=== PATIENT | female | born 1940 | race Caucasian/White ===

== ENCOUNTER 2017-01-06 18:07 | Inpatient (IN) | payer MEDICARE, MEDICAID ==
[~2017-01-06] VITALS: Ht 172.7 cm; Wt 130.5 kg
--- NOTE | ~2017-01-06 | CON ---
PATIENT'S NAME: [facility] AGE: 76 Y [address] ROOM: [address] [place] [id number] LOCATION: [facility] ADMIT DATE: 01/06/2017 Consultation DISCHARGE DATE: FAMILY PHYSICIAN: Kayla Holder MD ATTENDING PHYSICIAN: Kayla Holder REFERRING PHYSICIAN: TWILA BERNAL DO CHIEF COMPLAINT: Right knee pain. HISTORY OF PRESENT ILLNESS: This is a 76-year-old female who is brought in by EMS to the emergency room, evaluated, and found to have weakness, right knee pain, and very poor living conditions reported by EMS. The patient is a poor historian, but denies any specific trauma or injury to her right knee recently. She does have history of multiple surgeries, she cannot recall when. Apparently, she had a surgery in [place], she does not know by whom. She had a 2nd surgery performed by Dr. Corral in [place]. She states she has been a home ambulator where she basically transfers from wheelchair to the commode and bed and that is it. MEDICAL HISTORY: Elevated BMI; hypertension; diabetes; hypothyroidism; gastroesophageal reflux; asthma; obstructive sleep apnea; history of urosepsis; chronic bilateral lower extremity edema and swelling; and history DVT and PE, on Coumadin. CURRENT MEDICATIONS: Reviewed. SOCIAL HISTORY: She lives independent in an apartment, transfers from wheelchair to commode or bed. Has reported unsafe living conditions. Currently being treated for UTI and history of urosepsis. PHYSICAL EXAMINATION: VITAL SIGNS: She is 5 feet 8 inches, 133 kilos with an elevated BMI. Temperature 99.7, saturation 90% on 4 L nasal cannula in the ED, subsequently taken off oxygen, able to keep her saturations up. She denies any shortness of breath more than usual. Current blood pressure 121/60, heart rate in the 70s, respiratory rate 16, and current temperature 97.7. EXTREMITIES: She is able to move her lower extremities. Has weakness bilateral. She has chronic bilateral lower extremity edema. Her scar from prior surgeries over her distal femur is crusted over on scar. There is no active drainage or effusion or fluctuance. ABDOMEN: Soft, obese. MUSCULOSKELETAL: Her extensor mechanism is intact. There is no large joint PATIENT'S NAME: [facility] AGE: 76 Y [address] ROOM: [address] [place], [place] [address] LOCATION: [facility] ADMIT DATE: 01/06/2017 Consultation DISCHARGE DATE: FAMILY PHYSICIAN: Kayla Holder MD ATTENDING PHYSICIAN: Kayla Holder. She has chronic pitting edema, bilateral lower extremities. IMAGING DATA: X-rays reviewed show a lateral plate over distal femur with loosening of some of the screws and a broken screw. The plate has come off proximally. The fracture has abundant callus surrounding, however, is not completely united in appearance. Concern for malunion and nonunion. PLAN: Recommend obtaining op note from Dr. Corral in [place]. Keep her toe-touch weightbearing with transfers. Obtain ESR, CRP, and CT scan at the fracture site to evaluate for nonunion at the fracture site. Recommend continue DVT prophylaxis per hospitalist. She is currently on Coumadin. Further recommendations based on inflammatory markers and will obtain op notes from Dr. Corral who did her prior surgery. TWILA BERNAL DO PH/modl /[id number] d: 01/08/17 0001 t: 01/11/17 1818, CONSULTATION REPORT
--- NOTE | ~2017-01-06 | ER ---
PATIENT'S NAME: [facility] AGE: 76 Y [address] ROOM: [place] [address] LOCATION: [facility] ADMIT DATE: 01/06/2017 ER/Outpatient Report DISCHARGE DATE: FAMILY PHYSICIAN: Kayla Holder MD ATTENDING PHYSICIAN: Kayla Holder Time of Patient's Arrival: 1807 hours. Time of Patient's Evaluation: 1807 hours. CHIEF COMPLAINT: Right leg pain and weakness. HISTORY OF PRESENT ILLNESS: This is a 76-year-old female who presents to the ER via [facility]. The patient is a poor historian, but states that she is having some right knee pain. She does live at home in her apartment and she is in her wheelchair most of the time, but she is able to transfer herself to the toilet and transfer herself around to take care of herself, but she has not been able to because she has had some generalized weakness as well. She knows of no new injury to the knee. She does have a history of knee problems in the past and she states that she has seen an orthopedic in [place] as well as in [place] for it. She states that she was told that she should have a knee replacement done in some time. She denies any recent fever or chills. No chest pain. No shortness of breath. She denies any vomiting or diarrhea. No abdominal pain. She does doctor with Dr. Holder and she states that she goes into the clinic frequently to have her blood drawn since she is on Coumadin. ALLERGIES: NO KNOWN ALLERGIES. MEDICATIONS: Please see medication list in nurse's notes. PAST MEDICAL HISTORY: 1. Coronary artery disease. 2. History of PE with DVT. 3. Lvg-jkidsrs-grjjdbpmt diabetic. 4. Asthma. 5. Hypertension. 6. Hypothyroidism. 7. Sleep apnea. 8. History of urosepsis. Most of this was taken for an H and P in 2012. SOCIAL HISTORY: PATIENT'S NAME: [facility] AGE: 76 Y [address] ROOM: [place] [address] LOCATION: N ADMIT DATE: 01/06/2017 ER/Outpatient Report DISCHARGE DATE: FAMILY PHYSICIAN: Kayla Holder MD ATTENDING PHYSICIAN: Glory,Kayla Denies smoking or drug use. Does live at home by herself. REVIEW OF SYSTEMS: All systems were reviewed and were negative with the exception of those discussed in the HPI. PHYSICAL EXAMINATION: VITAL SIGNS: Height 5 feet 8 inches stated, weight 132.6 kg taken, blood pressure is 97/48, pulse 82, respirations 16, temperature 99.7 degrees tympanically, and saturations 90% on 4 L nasal cannula. GENERAL: Alert and obese female, in no acute distress. HEENT: Head: Normocephalic. She does display moist mucous membranes. Eyes: Pupils are equal and reactive to light. NECK: Supple. No lymphadenopathy. LUNGS: Diminished throughout. She has no wheezes or crackles. HEART: Regular rate and rhythm. ABDOMEN: Obese. It is nontender. She has good bowel sounds throughout. EXTREMITIES: She does have venous stasis noted to bilateral lower extremities and does have dry flaking skin noted to bilateral legs from her knees down to her feet. She does have tenderness with palpation across her right knee. I do not appreciate any erythema. She does have 2 to 3+ pitting edema noted to bilateral lower extremities. NEUROLOGIC: Cranial nerves 2 through 12 grossly intact. Gait was not observed. SKIN: She does once again have dry flaking skin noted to her bilateral lower extremities and venous stasis noted to her bilateral lower extremities. LABORATORY DATA: CBC: White count is 10.2, hemoglobin is 12.7, platelets are 199, and ANC is 8.6. INR is 2.77. CMS: Sodium 138, potassium 4.1, BUN 26, creatinine is 0.8, and GFR is greater than 60. Magnesium is 1.8. CPK is 60, CK-MB is 0.6, and troponin I is less than 0.040. EKG shows normal sinus rhythm with some premature supraventricular complexes. Chest x-ray was negative for any infiltrate. X-ray of her right knee and femur was done does show a previous femur repair with hardware and it does look like the hardware screw is broke and some of the bone is not fused correctly. IMPRESSION: 1. Right lower extremity pain. 2. Generalized weakness. 3. History of pulmonary embolism with deep venous thrombosis, is on Coumadin therapy. 4. Xvj-jkwxspj-ggbeplxsx diabetic. 5. History of hypertension. PATIENT'S NAME: DANILO [facility] AGE: 76 Y [address] ROOM: [facility] [place], [place] [address] LOCATION: [facility] ADMIT DATE: 01/06/2017 ER/Outpatient Report DISCHARGE DATE: FAMILY PHYSICIAN: Kayla Holder MD ATTENDING PHYSICIAN: Kayla Holder ASSESSMENT AND PLAN: The patient did rest here comfortably. According to the EMS report, they state that her apartment was unkempt and was foul smelling. I am concerned about the patient going back and not being able to care for herself. I did call Dr. Blanton who is on-call for her primary care physician, Dr. Holder, and he will be placing the patient in the hospital for further observation. The patient understands and agrees with care. XAVIER HUGHES PA-C FOR MD KHOI WOODRUFF/nettie /[id number] d: 01/07/17 0022 t: 02/09/17 1735, OUTPATIENT REPORT
--- NOTE | ~2017-01-06 | HP ---
PATIENT'S NAME: [facility] AGE: 76 Y [address] ROOM: [address] [address] LOCATION: [facility] ADMIT DATE: 01/06/2017 History & Physical DISCHARGE DATE: FAMILY PHYSICIAN: Kayla Holder MD ATTENDING PHYSICIAN: Kayla Holder DATE OF SERVICE: CHIEF COMPLAINT: Right knee pain with weakness. HISTORY OF PRESENT ILLNESS: She presented to the emergency room as a 76-year-old white female, who has a history of morbid obesity, hypertension, type 2 diabetes, hypothyroidism, reflux, history of DVT with PE, allergic rhinitis, chronic anticoagulation, history of distal femur fracture with knee replacement, decreased mobility, and hypoxia. She relates that she called the squad tonight because she had more trouble getting around with right knee pain with swelling. She denies any history of falls. She does have a history of being essentially nonambulatory and typically, just transfers from wheelchair to toilet, wheelchair to chair. She sees Dr. Kayla Holder, but has not seen her in the last couple of months. She relates to me that she has not had any shortness of breath or chest discomfort. MEDICATIONS: Her medications at the time of admission include: 1. Potassium 20 mEq b.i.d. 2. Vitamin D 3000 International Units daily. 3. Metformin 500 mg daily. 4. Lisinopril 2.5 mg per day. 5. Lasix 20 mg per day. 6. Levothyroxine 88 mcg per day. 7. Pantoprazole 40 mg per day. 8. VESIcare 5 mg per day. 9. Multivitamin daily. 10. Zyrtec 10 mg per day. 11. Metoprolol 50 mg daily. 12. Coumadin 4 mg one tab on Sunday, Sunday, Sunday, Sunday; one-half tab Sunday, , Sunday. 13. Colace 100 mg per day. REVIEW OF SYSTEMS: No recent weight loss or weight gain. No fevers or chills. She denies shortness of breath, but does state that she has seen Dr. Stephenson in the past and had some sort of procedure done many years ago. PATIENT'S NAME: [facility] AGE: 76 Y [address] ROOM: [place] [address] LOCATION: [facility] ADMIT DATE: 01/06/2017 History & Physical DISCHARGE DATE: FAMILY PHYSICIAN: Kayla Holder MD ATTENDING PHYSICIAN: Kayla Holder PAST MEDICAL HISTORY: She has a past medical history as stated above. SOCIAL HISTORY: Lives alone at [facility]. She would like to remain independent. She does not smoke. PHYSICAL EXAMINATION: GENERAL: She is awake and alert in no acute distress. She looks older than her stated age. HEENT: Head is normocephalic and atraumatic. Pupils are equal, round, and reactive to light and accommodation. NECK: Supple. LUNGS: Decreased breath sounds in the bases. HEART: Regular rate and rhythm. ABDOMEN: Morbidly obese. She is tender over her medial knee. She has stigmata of previous surgical intervention and has 1+ edema bilaterally. She has stasis changes in bilateral lower extremities as well. LABORATORY STUDIES: Shows an INR of 2.77, white count 10.2, hemoglobin 12.7, hematocrit 37.8, platelets 199,000. Chemistries are normal with the exception of glucose at 104, BUN of 26. Her x-rays of the right femur and right knee show extensive degenerative changes of past trauma and surgery of the distal femur with knee replacement as well. There is a question of more lucency around the uppermost metallic screw with fracture of one of the upper screws, may represent incomplete bony union or loosening of the metallic plate. No acute fracture is seen. UA is positive for nitrites, 25 of blood, many bacteria and white cells. IMPRESSION: 1. Right knee pain and swelling. 2. Morbid obesity. 3. History of deep venous thrombosis and chronically anticoagulated. 4. Type 2 diabetes. 5. Hypertension. 6. Hypothyroidism. 7. Gastroesophageal reflux disease. 8. Incontinence. 9. Urinary tract infection. 10. Weakness. PATIENT'S NAME: [facility] AGE: 76 Y [address] ROOM: [address] [address] LOCATION: [facility] ADMIT DATE: 01/06/2017 History & Physical DISCHARGE DATE: FAMILY PHYSICIAN: Kayla Holder MD ATTENDING PHYSICIAN: Kayla Holder 11. Potentially unsafe living conditions. Apparently, the squad which was called stated it was dismantled and was not very well maintained. We will treat with antibiotics. We will have PT/OT to see. We will have Care Management consult. We will have Orthopedics see the patient regarding the knee and the findings regarding the screw. We will follow lab. We will actively do Accu-Cheks. Dr. Kayla Holder to assume care when available. MD TYLER LOYA/nettie /[id number] D: [id number] T: [id number] HISTORY & PHYSICAL
--- NOTE | ~2017-01-06 | DS ---
PATIENT'S NAME: [facility] AGE: 76 Y [address] ROOM: [address] [place] [address] LOCATION: [facility] ADMIT DATE: 01/08/2017 Discharge Summary DISCHARGE DATE: 02/07/2017 FAMILY PHYSICIAN: Kayla Holder MD ATTENDING PHYSICIAN: Kayla Holder CHIEF COMPLAINT: Right knee pain, weakness, and multi-drug resistant UTI. DISCHARGE DIAGNOSES: 1. Right distal femur fracture malunion. 2. Weakness, improving. 3. Multi-drug resistant urinary tract infection, resolved. SECONDARY DIAGNOSES: 1. Morbid obesity. 2. Hypertension. 3. Nonambulatory, dependent upon use of wheelchair. 4. Type 2 diabetes. 5. Hypothyroidism. 6. Gastroesophageal reflux disease. 7. History of deep venous thrombosis with pulmonary embolism. 8. Allergic rhinitis. 9. Chronic anticoagulation. 10. Chronic hypoxia. HOSPITAL COURSE: She presented to [facility] Emergency Room via ambulance squad due to right leg pain and swelling. When the EMT crew arrived at her home, they reported that she was living in very poor conditions, was completely dependent upon the wheelchair, and was thus not living in a safe situation. Workup in the emergency room revealed extensive degenerative changes from past trauma and past surgeries of the right distal femur with evidence of a right knee replacement as well. There is a question of increased lucency around the uppermost metallic screw with fracture of one of the upper screws with question of incomplete bony union or loosening of the metallic plate. There is no evidence of an acute fracture. Blood work revealed blood sugar of 104 and BUN 26. Hemoglobin 12.7 and white count 10.2. INR 2.77. UA was positive, and culture revealed multi-drug resistant UTI which was sensitive to gentamicin. So, that was started. Orthopedics evaluated the patient, Dr. Hargrove. There was discussion of transferring her to [place] where her past orthopedic surgeon was, Dr. Tran. However, she declined wanting to transfer to another facility. Therefore, evaluation by Dr. Delarosa was recommended and arranged. He evaluated the patient and felt that she had 3 options. One was to continue as is, nonambulatory and dependent upon wheelchair with no further intervention. Secondly was an amputation. Thirdly, multiple staged surgeries with no guarantee of final PATIENT'S NAME: [facility] AGE: 76 Y [address] ROOM: [address] [place], [place] [address] LOCATION: [facility] ADMIT DATE: 01/08/2017 Discharge Summary DISCHARGE DATE: 02/07/2017 FAMILY PHYSICIAN: Kayla Holder MD ATTENDING PHYSICIAN: Kayla Holder. The patient has been nonambulatory and dependent upon wheelchair for a considerable amount of time. I discussed her preferences with her and her power of chief minister, who is her niece. They both felt that it was best for the patient to reside in a [facility], not pursue further surgeries, and continue with nonambulatory status and dependent upon wheelchair. During the course of her hospitalization, her INR did become subtherapeutic for a short time. She was covered with Lovenox. Her initial UTI treated with gentamicin. Recheck UA indicated that there was a new UTI, and this was susceptible to Cipro. So, she was treated with that. The majority of her stay was due to waiting upon approval of secondary insurance and approval from [facility] for acceptance. This was successful on February 07, and the patient was discharged to [facility] under my continued care. DISPOSITION: Discharged to [facility]. MEDICATIONS: 1. Furosemide 20 mg p.o. daily. 2. Levothyroxine 88 mcg p.o. daily. 3. Cipro 250 mg p.o. b.i.d., to stop on February 08. 4. Colace 100 mg p.o. b.i.d. 5. Lisinopril 2.5 mg p.o. daily. 6. Zyrtec 10 mg p.o. daily. 7. Metformin 500 mg p.o. daily. 8. Metoprolol succinate 50 mg p.o. daily. 9. Multivitamin p.o. daily. 10. Nystatin to be applied to gluteal crease twice daily. 11. Protonix 40 mg p.o. daily. 12. Potassium chloride 20 mEq p.o. twice daily. 13. Zoloft 25 mg p.o. q.a.m. 14. Sanctura 20 mg p.o. q.h.s. 15. Warfarin 4 mg p.o. daily. 16. Tylenol 650 mg p.o. q.4 hours p.r.n. pain or fever. 17. MiraLAX 17 g p.o. daily p.r.n. 18. Nasal saline one puff each nostril q.2 hours p.r.n. 19. Vitamin D3 at 3000 international units daily. 20. O2 at 3 L/minute per nasal cannula continuous for hypoxia. FOLLOWUP: She is to follow up with me in clinic with an INR on February 13. PATIENT'S NAME: MAURO [facility] AGE: 76 Y [address] ROOM: [place] [address] LOCATION: [facility] ADMIT DATE: 01/08/2017 Discharge Summary DISCHARGE DATE: 02/07/2017 FAMILY PHYSICIAN: Kayla Holder MD ATTENDING PHYSICIAN: Kayla Holder MD KB/modl /[id number] d: t: 03/08/17 1400, DISCHARGE SUMMARY
--- NOTE | ~2017-01-06 | CON ---
PATIENT'S NAME: [facility] AGE: 76 Y [address] ROOM: [place] [address] LOCATION: [facility] ADMIT DATE: 01/08/2017 Consultation DISCHARGE DATE: FAMILY PHYSICIAN: Kayla Holder MD ATTENDING PHYSICIAN: Kayla Holder DATE OF CONSULTATION: 01/11/2017 REFERRING PHYSICIAN: TWILA BERNAL DO TIME SEEN: 10 p.m. HISTORY OF PRESENT ILLNESS: Ms. Helton is a 76-year-old white female, diabetic, disabled by obesity and chronic respiratory failure. She has a history of multiple operations on her right femur for fracture. Fracture was a minimal trauma fracture, she tripped over her oxygen line while walking, has had multiple operations that have failed, has a chronic nonunion and probably chronic osteomyelitis. Last surgery was done at the [facility], does not want to return to [place] for additional evaluation and treatment. Does not remember the dates. She has been confined to a wheelchair for years. Lives at home with difficulty. Was admitted septic with a urinary tract infection. Now on IV gentamicin. Also, anticoagulated on Coumadin. MEDICATIONS: See list. ALLERGIES: NONE REPORTED. PAST MEDICAL HISTORY: Obesity, respiratory failure, diabetes, and peripheral neuropathy. Does not smoke. Does not drink alcohol. No drug abuse. FAMILY MEDICAL HISTORY: Noncontributory. PERSONAL AND SOCIAL HISTORY: Lives by self with difficulty. PHYSICAL EXAMINATION: GENERAL: A white female, in no acute distress. She is confused and not oriented. NECK: Nontender. BACK: Nontender. PATIENT'S NAME: [facility] AGE: 76 Y [address] ROOM: [place] [address] LOCATION: [facility] ADMIT DATE: 01/08/2017 Consultation DISCHARGE DATE: FAMILY PHYSICIAN: Kayla Holder MD ATTENDING PHYSICIAN: Kayla Holder PELVIS: Stable. HEART: Pulse rate is regular. LUNGS: Able to take in a deep breath. ABDOMEN: Obese. EXTREMITIES: The right thigh is obese. No appreciable deformity of the thigh, grossly stable. Some discomfort on moving the right hip and the right knee. VASCULAR: Dorsalis pedis pulse is palpable in the right foot. Mild edema and mild stasis changes of the right thigh. NEUROLOGIC: Moves right foot with good strength, sensation. Stocking distribution numbness in both lower extremities. INTEGUMENT: Grossly intact. IMAGING DATA: Bone scan, increased uptake to the mid and distal right femur. X-rays of the right femur show nonunion right femur, supracondylar fractures, bone changes consistent with osteomyelitis and deformity of the femur, fixation has loosened and failed. LABORATORY DATA: She was admitted with a C-reactive protein at 10.2. Hemoglobin 12.5, white blood count 5.8, and sedimentation rate 89. ASSESSMENT AND PLAN: The patient is currently being treated with IV antibiotics for sepsis after urinary tract infection. Any treatment of the right femur would be delayed until the urinary tract infection is treated and has been off antibiotics. The right femur is likely to have osteomyelitis. The best chance of identifying the organism will be being off the antibiotics for a period of time after the urinary tract infection has been successfully treated. I had a long talk with the patient, has had multiple failed operations in an attempt to heal the right femur, has multiple comorbidities which puts her at high risk for additional complications. She understands one treatment would be an above knee amputation. Certainly an above knee amputation would be the quickest healing, but it is unlikely that she would ever ambulate with a prosthesis. Surgical treatment in attempt to resolve the osteomyelitis, correct the deformity, and heal the fracture would include multiple staged operations, these would be elective. We would do debridement of the probable osteomyelitis with extensive cultures, correction of deformities, packed antibiotic-impregnated beads, place an external fixator, and then a period of IV antibiotics based on the results of cultures. After completion of approximately 2 months of IV antibiotics and if the cultures have returned to normal and if Ms. Helton continues to desire to have additional treatment, would plan for removal of the external fixator and staged bone grafting and internal fixation. Likely develop some arthritis of the right knee that might require PATIENT'S NAME: MAURO HELTON [facility] AGE: 76 Y [address] ROOM: [address] [place], [place] [address] LOCATION: [facility] ADMIT DATE: 01/08/2017 Consultation DISCHARGE DATE: FAMILY PHYSICIAN: Kayla Holder MD ATTENDING PHYSICIAN: Kayla Holder additional treatment in the future as well. Risks, benefits, and alternatives have all been discussed in detail. These are chronic conditions and will be treated electively. We will see her in the office on January 22 at 2 p.m. to confirm that completed the IV treatment of the urinary tract infection and has been off the antibiotics and the urine has normalized. We will also again discuss all treatment options. If the patient decides to return to the [facility], they are already established as her providers. CARLA MCCORMICK MD DPM/nettie /[id number] d: 01/12/172 t: 01/24/17 1004, CONSULTATION REPORT
[2017-01-06 18:40] LABS: BASOPHIL % 0.2 %; EOSINOPHIL # 0.1 K/uL (0.0-0.5); EOSINOPHIL % 0.6 %; HEMATOCRIT 37.8 % (33.0-46.0); HEMOGLOBIN 12.7 g/dL (10.0-15.0); IMMATURE GRANULOCYTE % 0.4 %; LYMPHOCYTE # 0.6 K/uL (0.8-4.0); LYMPHOCYTE % 5.6 %; MCH 31.8 pg (27.0-34.0); MCHC 33.6 gm/dL (32.0-36.5); MCV 94.5 fl (83.0-98.0); MONOCYTE % 9.3 %; MPV 10.2 fl (9.4-12.4); NEUTROPHIL # (ANC) 8.6 K/uL (1.8-7.8); NEUTROPHIL % 83.9 %; NRBC % 0 /100WBC (0-0.00); PLATELET COUNT 199 K/uL (150-450); RDW-CV 13.1 % (11.9-14.6); WBC 10.2 K/uL (4.0-11.0)
[2017-01-06 18:52] LABS: INR - (THERAPEUTIC) 2.77 (0.92-1.07); PROTIME 29.4 SECONDS (9.8-11.4); PTT 54 SECONDS (25-32)
[2017-01-06 19:00] LABS: ALBUMIN 2.9 gm/dL (3.5-5.0); ALK PHOS 87 IU/L (33-138); ALT 15 IU/L (12-78); ANION GAP 9.1 (10.0-19.0); AST 14 IU/L (10-40); BLOOD UREA NITROGEN 26 mg/dL (6-24); CHLORIDE 100 mMol/L (96-110); CO2 33 mMol/L (22-32); CPK 60 IU/L (21-215); CREATININE 0.8 mg/dL (0.5-1.1); ESTIMATED GFR (MDRD EQUATION) > 60; MAGNESIUM 1.8 mg/dL (1.8-2.6); POTASSIUM 4.1 mMol/L (3.7-5.1); SODIUM 138 mMol/L (135-145); TOTAL BILIRUBIN 0.5 mg/dL (0.0-1.5); TOTAL PROTEIN 7.1 g/dL (6.0-8.4)
[2017-01-06 20:37] LABS: BLOOD URINE 25 /UL (NEGATIVE); COLOR URINE YELLOW (YELLOW); GLUCOSE URINE NEGATIVE (NEGATIVE); KETONE URINE NEGATIVE (NEGATIVE); LEUKOCYTES URINE 25 /UL (NEGATIVE); NITRITE URINE POSITIVE (NEGATIVE); PROTEIN URINE 15 mg/dL (NEGATIVE); TURBIDITY URINE CLEAR (CLEAR); UROBILINOGEN URINE 1 mg/dL (NORMAL)
[2017-01-06 20:58] LABS: BACTERIA URINE MANY (NEGATIVE)
[2017-01-06 21:01] LABS: EPITHELIAL URINE 0-2 #/HPF (NEGATIVE); WBC CLUMPS URINE FEW (NEGATIVE)
[2017-01-07] MEDS ORDERED: K-TAB 10MEQ10 MEQ PO (01:19)
[2017-01-07] MEDS ORDERED: VITAMIN D31000 UNI1 PO (01:23)
[2017-01-07] MEDS ORDERED: LASIX20 MG PO (01:25)
[2017-01-07] MEDS ORDERED: PRINIVIL (ZESTRI5 MG PO (01:26)
[2017-01-07] MEDS ORDERED: GLUCOPHAGE500 MG PO (01:29)
[2017-01-07] MEDS ORDERED: CERTAVITE SR-A1 EACH PO (01:31)
[2017-01-07] MEDS ORDERED: VESICARE5 MG PO (01:33)
[2017-01-07] MEDS ORDERED: PROTONIX40 MG PO (01:36)
[2017-01-07] MEDS ORDERED: SYNTHROID88 MCG PO (01:39)
[2017-01-07] MEDS ORDERED: ZYRTEC10 MG PO (01:41)
[2017-01-07] MEDS ORDERED: METOPROLOL SUCC50 MG PO (01:43)
[2017-01-07] MEDS ORDERED: COUMADIN 4MG **4 MG PO ×2 (01:48→01:50)
--- NOTE | 2017-01-07 02:27 | NUR ---
Patient arrived to ER via ambulance from home in [place] due to increased weaknesss and right knee pain and inability to care for self. Patient has very poor skin condition and hygiene, VSS are stable, is currenltly on 5L of 02 wears 4L at home. Very poor historian with medical history and evidence of cognitive impairment. Med recon completed by using patients medication bottles she brought from home.
[2017-01-07] MEDS ORDERED: OXYGEN M-15 INH (02:32)
[2017-01-07 04:31] LABS: BASOPHIL % 0.3 %; EOSINOPHIL # 0.2 K/uL (0.0-0.5); EOSINOPHIL % 2.1 %; HEMATOCRIT 36.7 % (33.0-46.0); HEMOGLOBIN 12.1 g/dL (10.0-15.0); IMMATURE GRANULOCYTE % 0.4 %; LYMPHOCYTE # 0.8 K/uL (0.8-4.0); LYMPHOCYTE % 10.2 %; MCH 31.8 pg (27.0-34.0); MCV 96.3 fl (83.0-98.0); MONOCYTE # 0.8 K/uL (0.0-1.0); MPV 9.8 fl (9.4-12.4); NEUTROPHIL # (ANC) 5.8 K/uL (1.8-7.8); NRBC % 0 /100WBC (0-0.00); PLATELET COUNT 172 K/uL (150-450); RBC 3.81 M/uL (3.50-5.50); RDW-CV 13.2 % (11.9-14.6); WBC 7.6 K/uL (4.0-11.0)
--- NOTE | 2017-01-07 04:50 | NUR ---
Patient is alert and oriented, seem to have some slight cognitive impairment, has a UTI on antibiotics IV, very hard to reposition in bed unable to move self, has numerous skin issues to bilateral abdominal folds, groins, buttocks, bilateral legs and abdomen, skin on legs is very dry and peeling/flaking off, patient needs mechanical lift for transfers and repositioning, patient living conditions at home were not good and she is unable to provide adequate care for herself and is needs to find placement to have care management consult and WOC
[2017-01-07 05:05] LABS: ALBUMIN 2.5 gm/dL (3.5-5.0); ALK PHOS 73 IU/L (33-138); ALT 14 IU/L (12-78); ANION GAP 7.3 (10.0-19.0); AST 13 IU/L (10-40); BLOOD UREA NITROGEN 24 mg/dL (6-24); CALCIUM 8.7 mg/dL (8.5-10.5); CHLORIDE 103 mMol/L (96-110); CREATININE 0.6 mg/dL (0.5-1.1); ESTIMATED GFR (MDRD EQUATION) > 60; POTASSIUM 4.3 mMol/L (3.7-5.1); SODIUM 141 mMol/L (135-145); TOTAL BILIRUBIN 0.4 mg/dL (0.0-1.5); TOTAL PROTEIN 6.1 g/dL (6.0-8.4)
[2017-01-07 05:09] LABS: CO2 35 mMol/L (22-32)
--- NOTE | 2017-01-07 17:59 | NUR ---
Significant Event: UP TO COMMODE AND CHAIR USING SIT TO STSAND LIFT, TOLERATED ACTIVITY WELL. HAS BEEN CONTINENT OF URINE. ABLE TO MAKE NEEDS KNOWN. IS [employer] [place] IS ABLE TO UNDERSTAND CONVERSATION BETTER IF PERSON FACES HER TO SPEAK...TOWEL PLACED UNDER SKIN FOLDS OF ABD. A[place]ISTA APPLIED TO LOWER LEGS. HAS ABRASION LIKE AREA ON RIGHT MID BUTTOCK, ALEO APPLIED. HAD TYLENOL THIS AM.. [facility] NURSES TO SEE HER SUNDAY, NEED TO LOOK AT HER FEET... Follow up:
--- NOTE | 2017-01-08 03:46 | NUR ---
Significant Event:pt alert and orientedx4.pleasant with cares and staff. can be tearful at times. incontient of urien at night. buttocks purple however blanchable. does have small open area appears to be scratch. naila care and barrier applied. abdomen fold and naila area also noted to be red, areas cleaned and barrier applied. pt takes medicaiton whole. denies pain to right knee when not moving hwoever does have pain with movement. pt stats she lives at home and takes care of herself. pt iv to right forearm. lower extremites very swollen. barrier applied to legs due to beign so dry. noted to have very large bm at hs. uses call light approp. Follow up:
--- NOTE | 2017-01-08 08:49 | NUR ---
PT SCREENED D/T (+) MST. PT W/ GOOD APPETITE, EATING 100% AND BMI IN MORBIDLY OBESE RANGE. BASED ON CURRENT DATA, PT NOT AT RISK. WILL ASSIST NEEDED.
--- NOTE | 2017-01-08 15:35 | NUR ---
SPOKE TO PATIENT REGARDING CM AND OUR ROLE. PATIENT LIVES ALONE IN AN APARTMENT. THERE IS CONCERN TO WHETHER OR NOT PATIENT CAN RETURN HOME AND CARE FOR HERSELF. I MEET WITH PATIENT AT LENGTH. SHE TELLS ME SHE GETS AROUND PER WC. AND I EXPLAINED TO HER ABOUT THE CONCERNS OF HER RETURNING HOME ALONE. AND PRESENTED THE OPTION OF HER GOING TO A SNF. SHE TELLS ME THAT SHE IS OPENED TO GOING TO [facility] SHE LIVES NEAR THERE. AT THIS TIME PATIENT IS OBSERVATION STATUS SO IT WOULD BE OUT OF POCKET. REFERRAL MADE TO GERARDO WITH [facility]. GERARDO VOICES CONCERNS ABOUT PATIENT BEING OBSERVATION AND PRIVATE PAY. SHE WOULD LIKE FOR ME TO FAX INFO TO HER SHE WILL REVIEW IT THEY WILL GET BACK TO ME ON SUN.
--- NOTE | 2017-01-08 16:16 | NUR ---
Significant Event: Pt Aox3. VSS, CSM WNL, unable to check pedal pulse but toes pink, warm, wiggle. Splint to R) LE C/D/I, iced and elevated. Pain with movement. Up to recliner with mechanical lift, does well. IV intact. Urine very strong smelling. Keflex started today and Florastor. Pain controlled with PRN [place], given x 1. Needs much encouragement with activity and therapies. Uses IS as instructed with encouragement. Takes PO well. Follow up:
--- NOTE | 2017-01-08 16:54 | NUR ---
patient up to recliner with sit to stand. using BSC with sit to stand, tolerated well. unable to stand or maintain wb status with physical therapy. skin very dry-aloe applied, small open area to buttock-applied aloe vesta frequently. abdominal folds reddened, aloe applied and towel to keep skin seperated. edema to right knee. refused tylenol. right knee uncomfortable but refuses pain meds. o2 at 4l/min as at home. vss. left lung diminished. +e coli in urine, started on gentamycin.pleasant and cooperative.
--- NOTE | 2017-01-09 04:22 | NUR ---
Pt EGEGIK. Pt on 4L per NC chronically. Aloe vesta applied to bottom. PRN at 0418. incontinent at times. Lgd-ej-rmymb used for transfers. Pt on IV Gent.
[2017-01-09 05:15] LABS: BASOPHIL % 0.2 %; EOSINOPHIL # 0.4 K/uL (0.0-0.5); HEMATOCRIT 39.2 % (33.0-46.0); HEMOGLOBIN 12.5 g/dL (10.0-15.0); IMMATURE GRANULOCYTE % 0.3 %; LYMPHOCYTE # 0.7 K/uL (0.8-4.0); LYMPHOCYTE % 11.2 %; MCH 31.3 pg (27.0-34.0); MCHC 31.9 gm/dL (32.0-36.5); MCV 98.2 fl (83.0-98.0); MONOCYTE # 0.6 K/uL (0.0-1.0); MONOCYTE % 10.8 %; MPV 9.6 fl (9.4-12.4); NEUTROPHIL # (ANC) 4.1 K/uL (1.8-7.8); NEUTROPHIL % 70.5 %; NRBC % 0 /100WBC (0-0.00); PLATELET COUNT 199 K/uL (150-450); RBC 3.99 M/uL (3.50-5.50); RDW-CV 12.8 % (11.9-14.6); WBC 5.8 K/uL (4.0-11.0)
--- NOTE | 2017-01-09 17:16 | NUR ---
Significant Event: Transfers with xgq-ju-xlxqt lift and two assist. TTWB to R) leg , does not maintain even in lift. Voids without difficulty. Small loose BM. Remains on 4L O2. Refuses offers of Tylenol. Accucheck ACHS. Follow up:
--- NOTE | 2017-01-10 04:50 | NUR ---
Significant Event: Alert and oriented X3. Vital signs stable. Sats at 90-95% on 3L 02. Continent of urine this shift. On IV gent for UTI with E.Coli. Redness/excoration to abdominal and groin folds. Excessive dryness to lower legs. Buttocks purple in color with some excoration. Aloe vesta applied. IV to R) FA. Pt is TTWB, unable to follow using sit-stand lift. Tylenol given at HS. Refuses other offers of pain. States she is not having pain when not moving. Repositioned q 2 hr. Pleasant and cooperative with cares. Follow up:
[2017-01-10 05:39] LABS: BASOPHIL % 0.3 %; EOSINOPHIL # 0.4 K/uL (0.0-0.5); EOSINOPHIL % 7.3 %; HEMOGLOBIN 12.3 g/dL (10.0-15.0); IMMATURE GRANULOCYTE % 0.5 %; LYMPHOCYTE # 0.6 K/uL (0.8-4.0); LYMPHOCYTE % 9.9 %; MCHC 31.5 gm/dL (32.0-36.5); MCV 98.2 fl (83.0-98.0); MONOCYTE # 0.6 K/uL (0.0-1.0); MONOCYTE % 10.6 %; MPV 9.3 fl (9.4-12.4); NEUTROPHIL # (ANC) 4.3 K/uL (1.8-7.8); NEUTROPHIL % 71.4 %; NRBC % 0 /100WBC (0-0.00); PLATELET COUNT 204 K/uL (150-450); RBC 3.97 M/uL (3.50-5.50); RDW-CV 12.8 % (11.9-14.6); WBC 6.1 K/uL (4.0-11.0)
[2017-01-10 05:52] LABS: INR - (THERAPEUTIC) 2.06 (0.92-1.07); PROTIME 21.8 SECONDS (9.8-11.4)
--- NOTE | 2017-01-10 11:30 | NUR ---
RECEIVED CALL FROM GERARDO WITH [facility] SHE INFORMS ME THAT THEY ARE NOT APPOSED TO TAKING MAURO BUT THE FACT SHE DOES NOT HAVE A SECOND PAYOR SOURCE CONCERNS THEM AND SUGGESTS THAT WE WORK ON GETTING HER ON MEDICAID. I EXPLIANED TO HER THAT EARLIER THIS MORNING I MADE A REFERRAL TO [facility] WITH [employer] AND SHE WAS GOING TO LOOK AND SEE IF PATIENT WOULD QUALIFY FOR MEDICAID. GERARDO WOULD LIKE FOR ME TO KEEP HER UPDATED ON THE PATIENT. WILL CONT TO FOLLOW NEEDED.
[2017-01-10 12:37] LABS: CREATININE 0.6 mg/dL (0.5-1.1); ESTIMATED GFR (MDRD EQUATION) > 60
--- NOTE | 2017-01-10 17:19 | NUR ---
Significant Event: Transfers with two assist and ugk-us-hkcrj lift. Voids frequently, incont at times. Denies pain, refuses offers of Tylenol. Isolation for E-Coli in urine. Follow up:
--- NOTE | 2017-01-11 04:22 | NUR ---
Patient is alert and oriented, slow to respond to questions at times and is hard of hearing, transfers 2 assist with sit to stand lift does fair, no c/o pain or discomfort, in isolation for ecoli in urine, has IV antibiotics, has rested well tonight
[2017-01-11 04:57] LABS: BASOPHIL % 0.3 %; EOSINOPHIL # 0.5 K/uL (0.0-0.5); EOSINOPHIL % 6.1 %; HEMATOCRIT 38.9 % (33.0-46.0); HEMOGLOBIN 12.2 g/dL (10.0-15.0); IMMATURE GRANULOCYTE % 0.5 %; LYMPHOCYTE # 0.9 K/uL (0.8-4.0); LYMPHOCYTE % 11.7 %; MCHC 31.4 gm/dL (32.0-36.5); MCV 98.7 fl (83.0-98.0); MONOCYTE # 0.8 K/uL (0.0-1.0); MONOCYTE % 10.5 %; MPV 9.5 fl (9.4-12.4); NEUTROPHIL # (ANC) 5.4 K/uL (1.8-7.8); NEUTROPHIL % 70.9 %; NRBC % 0 /100WBC (0-0.00); PLATELET COUNT 191 K/uL (150-450); RBC 3.94 M/uL (3.50-5.50); RDW-CV 12.7 % (11.9-14.6); WBC 7.7 K/uL (4.0-11.0)
--- NOTE | 2017-01-11 17:52 | NUR ---
Pt alert, oriented. She had pain rated at 2 earlier today and none since except states sligh Rt knee pain when transferred. Tylenol po x1 last at 0800. She has been up recliner most of shift. Up to BSC x2 and got in bed at 1700 and tilted to left side. Has had aloe to naila area when has excoriation and tiny open areas. Has slight redness to abd folds and groin and no open areas noted. Pt has voided well, but dribbles as soon as stands. Has edema and dry skin lower legs. States CSM WNL. O2 reduced to 3 liters and sats 91%. In contact isolation for E choli in urine. Acuchecks and no sliding scale. Pt is hard of hearing.
--- NOTE | 2017-01-12 04:34 | NUR ---
Patient is alert and oriented x3, very pleasant and cooperative, no c/o pain or discomfort this shift, has rested well, uses sit to stand lift for transfers and does well, skin is looking much better, seen by Dr. Isaura moon, patient was in good spirits
[2017-01-12 05:27] LABS: BASOPHIL % 0.3 %; EOSINOPHIL # 0.5 K/uL (0.0-0.5); EOSINOPHIL % 7.6 %; HEMATOCRIT 38.5 % (33.0-46.0); IMMATURE GRANULOCYTE % 0.6 %; LYMPHOCYTE # 0.7 K/uL (0.8-4.0); LYMPHOCYTE % 10.6 %; MCH 30.4 pg (27.0-34.0); MCHC 31.2 gm/dL (32.0-36.5); MCV 97.5 fl (83.0-98.0); MONOCYTE # 0.6 K/uL (0.0-1.0); MONOCYTE % 9.3 %; MPV 9.4 fl (9.4-12.4); NEUTROPHIL # (ANC) 4.5 K/uL (1.8-7.8); NEUTROPHIL % 71.6 %; NRBC % 0 /100WBC (0-0.00); PLATELET COUNT 215 K/uL (150-450); RBC 3.95 M/uL (3.50-5.50); RDW-CV 12.8 % (11.9-14.6); WBC 6.3 K/uL (4.0-11.0)
[2017-01-12 05:35] LABS: INR - (THERAPEUTIC) 1.71 (0.92-1.07); PROTIME 18.1 SECONDS (9.8-11.4)
[2017-01-12 06:06] LABS: BLOOD UREA NITROGEN 26 mg/dL (6-24); CALCIUM 8.7 mg/dL (8.5-10.5); CHLORIDE 99 mMol/L (96-110); CREATININE 0.7 mg/dL (0.5-1.1); ESTIMATED GFR (MDRD EQUATION) > 60; POTASSIUM 4.6 mMol/L (3.7-5.1); SODIUM 140 mMol/L (135-145)
[2017-01-12 06:07] LABS: ANION GAP 5.6 (10.0-19.0); CO2 40 mMol/L (22-32)
--- NOTE | 2017-01-12 10:34 | NUR ---
NOTIFIED GERARDO WITH [facility] AND GAVE HER UPDATE ON PATIENT. GERARDO WILL TAKE THE INFO TO HER TEAM AND GET BACK TO ME. SHE ANTICIPATES IT WILL BE THE FIRST OF NEXT WEEK BEFORE THEY CAN ACCEPT PATIENT. WILL CONT TO FOLLOW NEEDED.
--- NOTE | 2017-01-12 17:22 | NUR ---
Pt alert and oriented. She had IV restart left FA for infiltration. She has some numbness/tingling feet and slight numbness Rt knee. Pt given Gentamycin IV this morning. Pt voids on BSC and has been up to it 4 times this shift. Has been in recliner most of shift. Pt has peeling skin Rt buttock along with dry, purplish skin and aloe vesta on with each void. Aloe also to abd folds and naila area for slight redness and no open areas. Pt has denied pain Rt knee. Care Mgmt checking into placement. Pt has edema Rt knee. BS 100 and 210 so far this shfit. Pt continues in isolation for Ecoli in urine.
--- NOTE | 2017-01-13 04:34 | NUR ---
Shift Summary: Patient slept soundly throughout the night. She did not require any PRN pain medication. Transfers using Ier-pm-Iitwy lift with 2 assist. Is in isolation for EColi in urine. On 3L O2 per NC at all times. On AC&HS AC's but not SS. BS at HS was 166.
--- NOTE | 2017-01-13 08:43 | NUR ---
PT SCREENED D/T LOS. EST NEEDS: 7614-3277 KCALS, 75 GM PROTEIN, 1 ML/KCAL FLUIDS. INTAKE 100%. NO NUTRITION-RELATED DIAGNOSIS IDENTIFIED. WILL ASSIST NEEDED.
--- NOTE | 2017-01-13 17:18 | NUR ---
Pt alert, oriented. She has been up in recliner, up to BSC several times with lift and back to recliner. Hasn't had pain except when PT helped her up and was in Rt knee. Pt continues in contact isolation for Ecoli in urine. On Gentamycin IV. Pt CSM WNL except neuropathy bilat feet. MS 121 and 226 so far. Eats and drinks well. 900 ml voided. [place] abd folds and groin, Aloe [facility] to areas. Bottom is reddish purple, peeling skin Rt buttock. C/o buttocks itching. Aloe on. Note on chart for Dr to see if something else should be ordered. Pt on iris cushion. VS stable. CM working on placement when ready to transfer
--- NOTE | 2017-01-14 03:30 | NUR ---
Shift Summary: Patient is a zpm-gd-bseze lift to transfer. Has not requested any pain medication this shift. Tolerating ADA diet well. Voids without difficulty. Has dribbling at times when on the way to [facility]. On accuchecks AC&HS but no SS. BS at HS was 151. Patient in contact isolation for EColi in urine. Patient waiting for placement.
--- NOTE | 2017-01-14 17:25 | NUR ---
Pt alert and oriented. Denies pain. DId have tylenol at 1700 for occasional pain she gets Rt knee when transferred. Nystatin ointment used now on buttocks as ordered. Use the aloe on abd folds only. Pt has voided on BSC x3, Pt in recliner on iris cushion most of shift. Pt BS 120, 124, 116. Had discussed different menu choices today to see if BS would be lower at noon. Pt cooperated and seems now more aware of better foods to order. Pt has peripheral neuropathy bilat feet. Saline lock LF and gentamycin given this SM. Pt bottom purplish red, peeling skin and pettechiae redness perimeter. Says itching slightly better of buttocks. CM to continue tomorrow regarding placement. Pt in good spirits today. Does puzzles and plays cards and converses with staff. Scant mucous stool, small. Continues on contact isolation for Ecoli in urine
--- NOTE | 2017-01-15 04:10 | NUR ---
Shift Summary: Patient is a oxg-zr-tqahz lift. She has not taken any pain medication this shift. Is on Accuchecks AC&HS, but not SS. BS at HS was 137. She tolerates an ADA diet well. Voids without difficulty. Does have dribbling when up with lift at times. Has purplish skin color to buttocks with peeling skin. Slightly red skin to abd skin fold/groin. Patient in isolation for EColi in urine. She is [place], no hearing aids. Waiting for placement.
--- NOTE | 2017-01-15 09:50 | NUR ---
SPOKE TO DR. STYLES SHE FEELS THAT PATIENT IS READY FOR DISCHARGE TO [facility]. I SPOKE TO SHANNON AT [facility] AND SHE INFORMS ME THAT SHE HAS MEET WITH THE TEAM AND THAT THEY WILL NOT ACCEPT PATIENT UNTIL SHE HAS A SECOND PAYOR SOURCE AND THEY HAVE CONCERNS ABOUT THE ISOLATION. I SPOKE TO INDER WITH [employer] AND SHE REPORTS THAT THEY WILL START THE REFERRAL FOR MEDICAID TODAY. I HAVE UPDATED PATIENT AND DR. STYLES.
[2017-01-15 11:20] LABS: CREATININE 0.7 mg/dL (0.5-1.1); ESTIMATED GFR (MDRD EQUATION) > 60
--- NOTE | 2017-01-15 19:09 | NUR ---
Significant Event: UP IN RECLINER, UP TO COMMODE PER SIT TO STAND LIFT. TOLERATES USING SIT TO STAND WELL. DOES HAVE SOME RIGHT KNEE PAIN WITH TRANSFERS. BUTTOCKS PURPLISH IN COLORWITH SOME PEELING SKIN. SKIN RED TO ABD/GROIN FOLDS. ACCU CHECKS WITHIN NORMALS. IN ISOLATION FOR E-COLLI IN URINE. IS [facility], WAITING FOR DC PLAACEMENT... Follow up:
--- NOTE | 2017-01-16 04:28 | NUR ---
Significant Event: Alert/oriented x3. Wzt-qc-onszw lift in room. 1 void using bedside commode and 1 large incontinence of urine. Isolation for E coli in urine. Accuchecks AC, HS, but no sliding scale, 125 at HS. Purplish skin to buttocks, dry flaky skin throughout. Scheduled ointment in room. [place], no hearing aids. Slightly red skin to abdominal skin folds and groins. No pain medications given. Red scab on right knee, open to air. VSS on 3 LPM O2 per nasal cannula. CSM WNL. Follow up:
[2017-01-16 06:08] LABS: BASOPHIL % 0.4 %; EOSINOPHIL # 0.4 K/uL (0.0-0.5); EOSINOPHIL % 8.2 %; HEMATOCRIT 39.1 % (33.0-46.0); HEMOGLOBIN 12.4 g/dL (10.0-15.0); IMMATURE GRANULOCYTE % 0.7 %; LYMPHOCYTE # 0.7 K/uL (0.8-4.0); MCH 30.5 pg (27.0-34.0); MCHC 31.7 gm/dL (32.0-36.5); MCV 96.1 fl (83.0-98.0); MONOCYTE # 0.5 K/uL (0.0-1.0); MONOCYTE % 9.3 %; MPV 9.6 fl (9.4-12.4); NEUTROPHIL # (ANC) 3.7 K/uL (1.8-7.8); NEUTROPHIL % 68.4 %; NRBC % 0 /100WBC (0-0.00); PLATELET COUNT 187 K/uL (150-450); RBC 4.07 M/uL (3.50-5.50); RDW-CV 12.7 % (11.9-14.6); WBC 5.4 K/uL (4.0-11.0)
[2017-01-16 06:18] LABS: INR - (THERAPEUTIC) 1.4 (0.92-1.07); PROTIME 14.7 SECONDS (9.8-11.4)
[2017-01-16 06:26] LABS: BLOOD UREA NITROGEN 30 mg/dL (6-24); CALCIUM 8.7 mg/dL (8.5-10.5); CHLORIDE 98 mMol/L (96-110); CREATININE 0.7 mg/dL (0.5-1.1); ESTIMATED GFR (MDRD EQUATION) > 60; POTASSIUM 4.1 mMol/L (3.7-5.1); SODIUM 140 mMol/L (135-145)
[2017-01-16 06:27] LABS: ANION GAP 8.1 (10.0-19.0); CO2 38 mMol/L (22-32)
--- NOTE | 2017-01-16 17:57 | NUR ---
PATIENT UP TO CHAIR TODAY FOR MOST OF DAY. USING SIT TO STAND LIFT TO CHAIR, BSC. TOLERATED WELL. AWAITING NH PLACEMENT. VSS. TTWB RIGHT LEG. REDNESS TO GROIN-ALOE APPLIED. BUTTOCK PURPLISH WITH DRY CRUSTY SKIN-NYSTATIN APPLIED. RIGHT KNEE PAIN, HAD TYLENOL EARLY IN SHIFT. O2 AT 3L/MIN. IN CONTACT ISOLATION. VOIDING QS.
--- NOTE | 2017-01-17 03:52 | NUR ---
Significant Event: Alert/oriented x3. Isolation for E coli of urine. Ufu-tr-xuheu for transfers. Skin issues throughout - dry, flaky. Purplish skin on buttocks, Nystatin ointment in bathroom. Skin folds to abdomen and groin slightly red. VSS. Refused pain meds. O2 3 LPM per nasal cannula. 2 voids per bedpan. Prefers to turn to her right. Small red scab to right knee. Follow up:
--- NOTE | 2017-01-17 15:00 | NUR ---
SPOKE TO INDER WITH [employer] TO SEE PATIENT IS ANY WHERE NEAR GETTING MEDICAID. SHE INFORMS ME THAT THEY SUBMITTED THE PAPER WORK YESTERDAY. SHE WILL CONTACT ME WITH ANY UPDATES.
--- NOTE | 2017-01-17 19:01 | NUR ---
Significant Event: Transfers with two assist and qrj-fg-ionot lift. Voids per bedside commode. Denies pain. Remains in isolation for drug resistance E-Coli. Follow up:
--- NOTE | 2017-01-18 05:23 | NUR ---
Shift Summary: Patient is a wba-qr-aycjs to transfer. Tolerating ADA diet well. Voids without difficulty. Does dribble at times. Gave Tylenol at bedtime. Is diabetic, but not on accuchecks. Patient in isolation for E.Coli in urine. She is waiting for placement.
[2017-01-18 05:55] LABS: INR - (THERAPEUTIC) 1.77 (0.92-1.07); PROTIME 18.7 SECONDS (9.8-11.4)
--- NOTE | 2017-01-18 20:45 | NUR ---
Significant Event: UP TO RECLINER, COMMODE USING SIT TO STAND, TOLERATES ACTIVITY WELL, PASSING GAS, VOIDING WELL. BUTTOCKS RED/DARK PURPLE WITH SOME SKIN ABRASION. ALEO APPLIED. TAKES MEDS WELL HAD TYLENOL THIS AM...WAITING FOR PLACEMENT... Follow up:
--- NOTE | 2017-01-19 03:37 | NUR ---
Shift Summary: Patient uses a rvb-ep-euawp lift for transfers. Tolerating ADA diet well. Voiding without difficulty. Overdue for a BM. In isolation for E.Coli in urine. Waiting for placement. Patient took tylenol at bedtime.
--- NOTE | 2017-01-19 17:00 | NUR ---
Pt alert and oriented. She stood at bedside for PT this AM. Up to chair per sit to stand lift and up to BSC several times. Pt denies pain except some pain Rt knee when stood. Pt has bilat numbness and tingling feet. C/O Rt knee itching all shift. No rash noted. Pt in bed at 1600 and on left side. Abd folds, under breasts pinkish and aloe applied. Nystatin to buttocks. Dry flakey skin and a few small openings Rt buttock. Less purple color and not as red as last week. Pt continues in contact isolation. Scant mucous stool in with urine at last void and not enough to document as a stool. SL left FA intact and Gentamycin this AM>
--- NOTE | 2017-01-20 04:04 | NUR ---
Significant Event: Patient is alert and oriented x 3. VSS on 3L of O2 per home dose. Patient is up with 2 assist with sit to stand lift to bedside commode/or uses bedpan. Reposition q2 hours. Left breast, abdominal folds, bottom all reddened. Right side of buttock has superficial open areas. Moisture barrier cream applied. Voiding well. Incontinent of urine at times. No BM since 01/14. Note placed on chart for MD to address this am. Denies any pain. In isolation for E.Coli in the urine. Patient is pleasant and cooperative with cares. Follow up:
[2017-01-20 05:55] LABS: PROTIME 23.3 SECONDS (9.8-11.4)
[2017-01-20 05:57] LABS: INR - (THERAPEUTIC) 2.2 (0.92-1.07)
--- NOTE | 2017-01-20 16:01 | NUR ---
Significant Event: A&O, VSS, AFEBRILE, ON 3L O2 -HOME DOSE. ON COUMADIN FOR AFIB. GAVE ACETAMINOPHEN X1. UP TO CHAIR WITH MCU-UI-TDMPJ LIFT. STRESS INCONTINENCE AT TIMES, USES BEDPAN OR COMMODE. GAVE COLACE, MIRALAX, AND PRUNE JUICE -ENEMA TOMORROW IF STILL NO BM. IV TO L)HAND SL. ADA DIET, NO ACCUCHEKS. CONTACT ISOLATION FOR ECOLI IN URINE. FREQUENT REPOSITIONING, SKIN BREAKDOWN TO BOTTOM. PLEASANT & COOPERATIVE WITH CARES. Follow up: FLEETS ENEMA SUNDAY IF NO BM YET
--- NOTE | 2017-01-21 04:07 | NUR ---
Significant Event: Patient alert and oriented X4. Up with sit to stand lift to bedside commode. Tolerates well. Cooperative with cares. Vitals stable and on 3 liters oxygen. In contact isolatino for ecoli in urine. Used bedpan X1 per pt request. 325mg tylenol given X1 around 0330 because patient could not sleep. Dry skin noted on legs and arms, lotion applied PRN. Nystatin to buttocks. Plan is for enema tomorrow if no BM. Passing gas well. Waiting for placement. Follow up: Monitor for BM
--- NOTE | 2017-01-21 13:24 | NUR ---
Significant Event: A&0. VSS, AFEBRILE, 3L O2 PER HOME DOSE. SIT TO STAND 2 ASSIST TO CHAIR. DIABETIC DIET, NO ACCUCHEKS. GAVE FLEET ENEMA AND ENCOURAGED PT TO HOLD LONG POSSIBLE, ONCE PLACED ON COMMODE RESULTS WERE ONLY URINE COLORED. CONTACT ISO FOR ECOLI IN URINE. STRESS INCONTINENCE AT TIMES. Follow up: WAITING ON PLACEMENT.
--- NOTE | 2017-01-22 04:13 | NUR ---
Significant Event: A&Ox3, VSS on home dose of 3L O2. Scant mucousy BM on bed cruz. Patient complains of itching. Lotion applied to arms and legs. Moisture barrier to back and back of knees. Repositioned PRN as patient does refuse at times. Takes meds whole with water. Isolation for ecoli in urine. Tylenol given around 0130. Follow up: continue with plan of care, waiting for placement.
[2017-01-22 04:32] LABS: BASOPHIL % 0.3 %; EOSINOPHIL # 0.5 K/uL (0.0-0.5); EOSINOPHIL % 7.2 %; HEMOGLOBIN 12.1 g/dL (10.0-15.0); IMMATURE GRANULOCYTE % 0.5 %; LYMPHOCYTE # 0.8 K/uL (0.8-4.0); LYMPHOCYTE % 12.7 %; MCH 30.9 pg (27.0-34.0); MCHC 32.7 gm/dL (32.0-36.5); MCV 94.4 fl (83.0-98.0); MONOCYTE # 0.6 K/uL (0.0-1.0); MONOCYTE % 9.8 %; NEUTROPHIL # (ANC) 4.3 K/uL (1.8-7.8); NEUTROPHIL % 69.5 %; NRBC % 0 /100WBC (0-0.00); PLATELET COUNT 179 K/uL (150-450); RBC 3.92 M/uL (3.50-5.50); WBC 6.2 K/uL (4.0-11.0)
--- NOTE | 2017-01-22 16:10 | NUR ---
Significant Event: UP IN CHAIR TO COMMODE WITH SIT TO STAND LIFT. C/O RIGHT LEG WITH MOVING. C/O N/T IN BILAT FEET WHICH SHES HAD BEFORE. DR HUTCHINSON TO SEE HER REGUARDING HER LEG... Follow up:
--- NOTE | 2017-01-23 05:24 | NUR ---
Significant Event: Pt A&Ox3, slow to respond. VS stable, remains on 3L. Very [place], speak facing patient. Has not c/o pain on shift. Pt zrv-cm-zjlsp only, does well. Continent of urine and uses commode. Pt still c/o itching throughout entire body. Nystatin to bottom. Edema throughout. LS C/D. Follow up: Continue plan of care. Waiting on placement.
[2017-01-23 05:41] LABS: INR - (THERAPEUTIC) 2.58 (0.92-1.07); PROTIME 27.4 SECONDS (9.8-11.4)
--- NOTE | 2017-01-23 14:52 | NUR ---
SPOKE TO [facility] WITH JUDY TO SEE WHERE THEY ARE AT IN THE PROCESS OF GETTING MAURO ON MEDICAID. SHE INFORMS ME THAT THEY ARE STILL WAITING TO HERE BACK FROM [facility] REGARDING THE INFO THAT HAS BEEN PRESENTED. WILL CONT TO FOLLOW NEEDED.
--- NOTE | 2017-01-23 14:54 | NUR ---
Significant Event: Transfers with wyd-ol-rzwsg lift and two assist. Voids without difficulty. Denies pain. Denies new numbness/tingling. Remains on 3L O2 as per home. Hard of hearing, please face the patient when speaking with her. Follow up:
--- NOTE | 2017-01-24 05:03 | NUR ---
Significant Event: Pt A&Ox3. VS stable, remains on 3L. Very [place], face pt when talking. Up with xzq-yd-ruwyq. Will use BSC when up during the day. PIV LFA, SL. No c/o pain on shift. Still continues to c/o itching throughout body. Nystatin to bottom. Aloe vesta cream to buttocks. Buttocks has small open area on R) side. Follow up: Waiting on placement. Continue plan of care.
--- NOTE | 2017-01-24 15:57 | NUR ---
Significant Event: pt alert and oriented. up with the sit to stand lift to the commode. voids well. iv saline locked. denies pain. cont in isolation. awaiting placement. Follow up:
--- NOTE | 2017-01-25 04:02 | NUR ---
Significant Event: A/O X 3. IV SALINE LOCK INTACT. SAT UP IN RECLINER CHAIR EARLIER EVENING. RETURN TO BED WITH SIT-STAND LIFT, AND 2 ASSIST. BEEN REPOSITIONED IN BED. VOIDED ON COMMODE BEFORE RETURNED TO BED. 02 ON 3L NASAL CANNULA. SATS ABOVE 90%. CONTINUES IN ISOLATION FOR E-COLI IN URINE. FOOT PUMPS TO FEET. WAITING PLACEMENT. HAS SMALL OPEN AREA ON RT AND LT BUTTOCKS, ALOE APPLIED AND BEEN REPOSITIONED. Follow up:
[2017-01-25 06:32] LABS: INR - (THERAPEUTIC) 2.5 (0.92-1.07); PROTIME 26.5 SECONDS (9.8-11.4)
--- NOTE | 2017-01-25 14:32 | NUR ---
Significant Event: Pt is a/o. Cooperative with cares. Up per sit to stand lift. CSM WNL. Waiting on placement. Has nystantin for skin fold areas. Follow up:
--- NOTE | 2017-01-26 04:04 | NUR ---
Significant Event: Alert/oriented x3. Isolation for E coli in urine. Voided per bedpan. Sms-vd-eqwet lift for transfers. Nystatin to buttocks. Saline lock in left posterior forearm. No pain meds. VSS on 3 LPM per nasal cannula. Waiting for placement. BM yesterday on day shift. Small open areas on left and right buttocks. Bilateral foot pumps. Follow up:
--- NOTE | 2017-01-26 16:17 | NUR ---
Significant Event: Pt is a/o. Cooperative with cares. Has been up in chair. To commode per sit-stand lift. Nystantin to skin folds. O2 3L NC. Remains in contact isolation. Now is able to WBAT, tires easily. Follow up:
--- NOTE | 2017-01-27 07:01 | NUR ---
Shift Summary: Patient is a xhi-fi-ohxjy lift to transfer. Did not need any PRN pain medication this shift. Is a diabetic, but not on accuchecks. Tolerates ADA diet well. Voids without difficulty. IV saline lock removed last night. Had been in the same site for 2 weeks. Patient has fine red rash to left arm and in elbow crease on right arm. Patient states she is very sensitive to soaps and laundry detergents. She is waiting placement.
--- NOTE | 2017-01-27 15:23 | NUR ---
Significant Event: Pt remains in contact isolation. VSS. On 3L/NC. WBAT. Up with sit to stand lift. Voids without difficulty and Bm today. Denies pain. Follow up:
--- NOTE | 2017-01-28 04:18 | NUR ---
Shift Summary: Patient has had 3 large incontinent voids this shift. She is a cxw-hd-bjbjs to transfer. Tolerating ADA diet well. No skin issues to skin folds. Does have slightly red skin to buttocks with small open areas. Slight rash to left upper arm. No PRN pain meds needed this shift.
--- NOTE | 2017-01-28 17:07 | NUR ---
Significant Event: Pt remains in contact isolation. VSS, once per shift now. Buttocks still have open area. Up with sit to stand lift. Denies pain. Takes PO well. Waiting placement. Follow up:
--- NOTE | 2017-01-29 03:20 | NUR ---
Shift Summary: Patient is a jam-xu-edmud lift for transfers. Has small open skin areas to buttocks. Patient did not request any pain mediations this shift. Patient tolerating ADA diet well. Voiding without difficulty. In contact isolation. Waiting placement.
[2017-01-29 06:16] LABS: INR - (THERAPEUTIC) 2.8 (0.92-1.07); PROTIME 29.7 SECONDS (9.8-11.4)
--- NOTE | 2017-01-29 09:00 | NUR ---
SPOKE TO BELEM WITH [facility] SHE INFORMS ME THAT THEY ARE STILL WAITING TO HERE FROM [facility] REAGARDING PATIENT GETTING MEDICAID. SHE REPORTS THAT SHE HAS SUMMITED ALL THE INFO THAT THEY NEED FOR NOW AND IS WAITING TO HERE BACK FROM THEM.
--- NOTE | 2017-01-29 17:30 | NUR ---
Significant Event: PT ALERT AND ORIENTED. UP WITH THE SIT TO STAND LIFT TO THE RECLINER AND THE COMMODE. BOTTOMS REMAINS SORE. CREAMS APPLIED. VOIDED WELL. NO BM TODAY. UNSURE OF DISCHARGE DATE. Follow up:
--- NOTE | 2017-01-30 02:52 | NUR ---
Significant Event: A/O X 3. 02 ON 3L NASAL CANNULA. REMAINS IN CONTACT ISOLATION. SAT UP IN RECLINER CHAIR, RETURN TO BED WITH SIT-STAND LIFT AND 2 ASSIST. BEEN REPOSITIONED IN BED. BILATERAL BUTTOCKS OPEN AREAS, ALOE APPLIED. DENIES PAIN WHEN ASKED. WAITING PLACEMENT. Follow up:
--- NOTE | 2017-01-30 15:25 | NUR ---
Significant Event: PT ALERT AND ORIENTED. UP WITH THE SIT TO STAND LIFT. VOIDS PER COMMODE. BM TODAY. NYSTATIN CREAM RESTARTED TO BUTTOCK. CONT TO AWAIT PLACEMENT. DENIES PAIN. IN CONTACT ISOLATION. Follow up:
--- NOTE | 2017-01-31 03:58 | NUR ---
Significant Event: 3 L of oxygen nasal cannula. numbness and tingling to the foot, patient states this is not new. Denies pain. Isolation. Up with sit to stand lift. Awaiting placement Follow up:
--- NOTE | 2017-01-31 16:46 | NUR ---
Significant Event: Transfers with two assist and gly-km-gdtkt lift. Voids without difficulty. Remains on 3L O2. Nystatin cream to buttocks. Contact isolation. Continue to await placement. Follow up:
--- NOTE | 2017-02-01 03:29 | NUR ---
Significant Event: CSM WNL. Sit to stand lift. Voids without difficulty. Nystatin cream to buttocks. On 3 L of oxygen nasal cannula. Denies pain. Awaiting placement. Follow up:
[2017-02-01 13:07] LABS: BILIRUBIN URINE NEGATIVE (NEGATIVE); BLOOD URINE NEGATIVE /UL (NEGATIVE); COLOR URINE YELLOW (YELLOW); GLUCOSE URINE NEGATIVE (NEGATIVE); KETONE URINE NEGATIVE (NEGATIVE); LEUKOCYTES URINE 25 /UL (NEGATIVE); NITRITE URINE NEGATIVE (NEGATIVE); PROTEIN URINE NEGATIVE (NEGATIVE); TURBIDITY URINE 1+ (CLEAR); UROBILINOGEN URINE NORMAL (NORMAL)
[2017-02-01 13:16] LABS: RBC URINE 0-2 #/HPF (NEGATIVE)
[2017-02-01 13:17] LABS: AMORPHOUS URINE 1+ (NEGATIVE); BACTERIA URINE MANY (NEGATIVE); MUCUS URINE 2+ (NEGATIVE)
--- NOTE | 2017-02-01 16:30 | NUR ---
RECEIVED CALL FORM TEA WITH [facility] WANTING UPDATE ON DISCHARGE PLANS. I UPDATED HER THAT I HAVE MADE REFERRAL TO [facility] AND THEY ARE WORKING ON GETTING PATIENT ON MEDICAID. SHE SENT THE BIOLOGICAL TECHNICAL OFFICER WORKING WITH MEDICAID AN EMAIL. TO SEE WHERE THEY ARE AT IN THE PROCESS AND TEA RECEIVED INFO THAT PATIENT HAS MEDICAID IN PLACE. I WILL CONTACT GERARDO WITH [facility] IN THE AM AND UPDATE HER. I HOPES THAT THEY CAN TAKE PATIENT THIS WEEK.
--- NOTE | 2017-02-01 16:36 | NUR ---
Significant Event: Transfers with sit to stand lift. Voids without difficulty. Bottom remains red and excoriated, Nystatin cream and Aloe [place] applied. BM this shift. Denies pain. Remains on 3L O2. Follow up:
--- NOTE | 2017-02-02 04:07 | NUR ---
Significant Event:Ate 100% supper. 240 po & 2 large voids. Is on 3L of Oxygen per NC, as at home. Bottom very reddened & Aloe [place] applied after voids. Denies any c/o pain. Assists with repositioning in the bed. Await urine culture results. Remains in Isolation.
--- NOTE | 2017-02-02 09:50 | NUR ---
I SPOKE TO GERARDO WITH [employer] [facility] [employer] AND UPDAETD HER THAT PER ELO FROM [facility] THAT PATIENT HAS MEDICAID. GERARDO WOULD LIKE FOR ME TO FAX INFO TO HER AND SHE WILL GET BACK TO ME.
--- NOTE | 2017-02-02 15:00 | NUR ---
SUPPORITVE VISIT: SPOKE TO MAURO UPDATED HER THAT WE ARE STILL WAITING ON MEDICAID TO GET IN PLACE AND THAT THE GOAL REMAINS FOR HER TO GO TO [facility]. ALSO RECEIVED REFERRAL FROM PHYSICAL THERAPY THAT PATIENT IS NOT REALLY PARTICIPATING IN THERAPY. I TALKED TO MAURO ABOUT THIS AND SHE TELLS ME THAT " I TRY BUT MY LEGS ARE WEAK. " SHE HAS FLAT AFFECT AND DOES NOT REALLY HAVE [facility] CONTACT. I ASKED HER WHAT HE GOALS ARE AND SHE TELLS ME" TO GO BACK TO MY APARTMENT." I ENCOURAGED HER THAT SHE NEEDS TO PARTICIPATE IN THERAPY IF SHE WANTS TO GO BACK TO HER APARTMENT. AND SHE RESPONDS "I WILL TRY MY BEST." PATIENT TELLS ME SHE HAS ALOT ON HER MIND BUT DOES NOT FEEL THAT SHE CAN SHARE IT WITH PEOPLE BECAUSE SHE IS WORRIED THATA THEY WILL " GET MAD". NOTIFIED DR. STYLES AND UPDATED HER ON THE MEDICAID PROCESS. ALSO INFORMED HERMY CONCERNS OF PATIENT NOT HAVING [facility] CONTACT WITH FLAT AFFECT. RECEIVED ORDER FOR ZOLOFT 25 MG DAILY. WILL CONT TO FOLLOW NEEDED.
--- NOTE | 2017-02-02 17:46 | NUR ---
D; up to chair/commode with sit to stand lift. Rectum/buttock red. Remains in isolation.
--- NOTE | 2017-02-03 04:40 | NUR ---
Pt transfers with [id number]. Waiting for urine culture, pt in contact isolation for urine. Started on zoloft yesterday. Bottom is reddened gets nystatin for bottom and aloe in groin.
--- NOTE | 2017-02-03 16:58 | NUR ---
Significant Event: vss, afebrile. up to chair and commode with use of sit to stand lift, tolerates well. buttocks/rectum remains red, ointment applied, refused iris cushion. bilateral foot pumps on. denies pain. Follow up:
--- NOTE | 2017-02-04 04:30 | NUR ---
Pt uses [id number] for transfers. [place]. Pt is on 3L 02, which is chronic. Two loose stools this shift. Pt refused stool softener. Nystatin cream to buttocks and aloe to groin.
--- NOTE | 2017-02-04 17:34 | NUR ---
Pt alert and oriented. Has denied pain to Rt knee. Has been up to BSC and in recliner this shift. Last time up was about 1700. Voided well and had one medium and 1 small loose stool. Bowel meds held. Pt is sit to stand lift transfer. States neuropathy bilat feet. Redness and some open scratches upper buttocks along crease. States area itches and nystatin does help. Applied x2. Slight redness low abd folds and under breasts. ALoevesta applied. Pt started on cipro this shift. Continues in isolation, contact. O2 on at 3 liters. VS stable.
--- NOTE | 2017-02-05 04:43 | NUR ---
[id number]-[id number] for transfers. Pt wears 3L O2 all the time. Nystatin cream to bottom, aloe to groin. Pt refused colace due to loose stools yesterday. Contact isolation.
--- NOTE | 2017-02-05 12:24 | NUR ---
SPOKE TO GERARDO WITH [facility] [employer] SHE INFORMS ME THAT SHE WILL CONTACT MEDICAID OFFICE TOMORROW TO SE IF PATIENT HAS MEDICAID. SINCE TOMORROW IS Feb, SHE HOPES THAT THEY WILL HAVE IT IN THE RECORD THAT SHE IS ACTIVE. WILL CONT TO FOLLOW NEEDED.
--- NOTE | 2017-02-05 13:00 | NUR ---
PT SCREENED D/T LOS. INTAKE 100% ALL MEALS. REMAINS AT NO RISK. WILL ASSIST NEEDED.
--- NOTE | 2017-02-05 13:25 | NUR ---
Significant Event: AOx3. VSS. Up with sit to stand to bedside commode. In isolstion for ecoli in the urine. Coccyx is purple and bloody. Cream applied. Nystatin cream at bedside. Had shower this a.m by OT. Follow up:
--- NOTE | 2017-02-06 03:51 | NUR ---
Shift Summary: Patient is a [id number] lift to transfer. Did not require any PRN pain medications that shift. Voids without difficulty. Tolerating ADA diet well. Has excoriation to buttocks. Waiting for placement.
[2017-02-06 05:37] LABS: PROTIME 36.4 SECONDS (9.8-11.4)
[2017-02-06 05:39] LABS: INR - (THERAPEUTIC) 3.42 (0.92-1.07)
--- NOTE | 2017-02-06 10:26 | NUR ---
SPOKE TO GERARDO FROM [facility] UPDATED HER THAT PATIENT IS OUT OF ISOLATION. GERARDO TELLS ME THAT SHE HAS NOT BEEN ABLE TO GET AT CONFIRMATION TO WHETHER PATIENT HAS MEDICAID. SHE LOOKS IN THE SYSTEM AND IT DOES NOT SHOW THAT PATIENT HAS MEDICAID. AND UNTIL SHE GETS IT CONFIRMED THEY WILL NOT ACCPET PATIENT. SHE IS GOING TO CONTACT ELO WITH [facility] AND SEE IF SHE CAN HELP HER WITH THIS. HAVE PLACED CALL TO BELEM WITH [facility].
--- NOTE | 2017-02-06 16:30 | NUR ---
Significant Event: Transfers with sit to stand lift. Voids per bedsice commode. Buttocks remain puprle, better than last week, Aloe vesta applied with each void. Removed from isolation this am and transfered to room 3315. Remains on 3L O2. Follow up:
--- NOTE | 2017-02-07 06:05 | NUR ---
Significant Event: PATIENT ALERT AND ORIENTED X 3. VSS. TAKING PO AND VOIDING WITHOUT DIFFICULTY. UP WITH 2 ASSIST AND SIT TO STAND LIFT. DENIES PAIN ALL OF SHIFT. CONTINUES TO HAVE OPEN AREA ON LEFT BUTTOCKS - ALOE [place] AND [place] APPLIED PER ORDER. REMOVED FROM ISOLATION ON DAYS YESTERDAY. MAY GO OUTSIDE IN W/C. PLEASANT AND COOPERTIVE WITH CARES. CONTINUES ON 3L O2 AT HOME. Follow up:
--- NOTE | 2017-02-07 10:00 | NUR ---
RECEIVED CALL FROM GERARDO WITH [facility] SHE REPORTS THAT THEY CAN ACCEPT PATIENT TODAY AND THAT THEY WILL BE HERE AT 1130 TO GET PATIENT. I SPOKE TO DR. PAUL AND UPDATED HER THAT [facility] HAS ACCEPTED PATIENT TODAY. SHE IS HERE AND COMPLETED THE TRANSFERE ORDERS. SPOKE TO MAURO AND INFORMED HER THAT SHE HAS BEEN ACCEPTED TO [facility] AND SHE IS IN AGREEMENT TO THIS. SHE REQUESTS THAT I CONTACT HER NIECE KARLA. I SPOKE TO KARLA AND UPDATED HER. SHE WILL PLAN ON SEEING PATIENT THIS PM AT [facility]. PACKET STARTED. ORDERS FAXED TO SHANNON SIMMONS AT [facility].
--- NOTE | 2017-02-07 14:27 | NUR ---
PT TRANSFERED TO [facility]
== END 2017-02-07 12:32 | DRG 560 ==
LOC: GMED 18:07 → G3N 20:27
PROVIDERS: Family Medicine; Orthopaedic Surgery; Physician Assistant Medical; ADMIT Family Medicine
DX: T84.090A Other mechanical complication of internal right hip prosthesis, initial encounter (principal); J96.11 Chronic respiratory failure with hypoxia; Z68.41 Body mass index [BMI] 40.0-44.9, adult; M86.9 Osteomyelitis, unspecified; N39.0 Urinary tract infection, site not specified; E66.01 Morbid (severe) obesity due to excess calories; B37.2 Candidiasis of skin and nail; E03.9 Hypothyroidism, unspecified; E11.9 Type 2 diabetes mellitus without complications; F32.9 Major depressive disorder, single episode, unspecified; G47.33 Obstructive sleep apnea (adult) (pediatric); I10 Essential (primary) hypertension; I25.10 Atherosclerotic heart disease of native coronary artery without angina pectoris; J45.909 Unspecified asthma, uncomplicated; K21.9 Gastro-esophageal reflux disease without esophagitis; M17.11 Unilateral primary osteoarthritis, right knee; Z79.01 Long term (current) use of anticoagulants; Z99.3 Dependence on wheelchair; B96.20 Unspecified Escherichia coli [E. coli] as the cause of diseases classified elsewhere
CPT/HCPCS: A9270; J0696; J1580; J1650; J7040; J7050; J7060

== ENCOUNTER → 2017-02-20 | Outpatient (CLI) | payer MEDICARE ==
[~2017-02-20] MED LIST: CERTAVITE SR-A1 EACH PO; COUMADIN 4MG **4 MG PO; GLUCOPHAGE500 MG PO; K-TAB 10MEQ10 MEQ PO; LASIX20 MG PO; METOPROLOL SUCC50 MG PO; OXYGEN M-15 INH; PRINIVIL (ZESTRI5 MG PO; PROTONIX40 MG PO; SYNTHROID88 MCG PO; VESICARE5 MG PO; VITAMIN D31000 UNI1 PO; ZYRTEC10 MG PO
[2017-02-20 10:54] LABS: INR - (THERAPEUTIC) 2.67 (0.92-1.07); PROTIME 28.3 SECONDS (9.8-11.4)
== END ==
PROVIDERS: Family Medicine
DX: I82.593 Chronic embolism and thrombosis of other specified deep vein of lower extremity, bilateral (principal)